=== PATIENT | male | born 1965 | race Caucasian/White ===

== ENCOUNTER → 2016-11-20 | Outpatient (CLI) | payer OTHER ==
[2016-11-20 20:34] LABS: Appearance,CSF Clear
[2016-11-24 02:56] LABS: Lyme Specimen Source Not Provided
== END | disposition home or self-care (01) ==
LOC: LABWHC1 11:37
PROVIDERS: ATTEND Psychiatry & Neurology Neurology
DX: G93.9 Disorder of brain, unspecified (principal); R42 Dizziness and giddiness; H53.9 Unspecified visual disturbance
CPT/HCPCS: 36415; 82040; 82042; 82784; 83873; 83916; 84157; 87476; 88108; 89050

== ENCOUNTER → 2017-03-01 | Outpatient (CLI) | payer OTHER ==
--- NOTE | 2017-03-01 08:59 | MR ---
MRI BRAIN WITH CONTRAST CLINICAL HISTORY: White matter disease TECHNIQUE: Multiplanar, multisequence imaging of the brain and brainstem is performed without and wit h IV contrast, 15 cc of Gadolinium is administered intravenously. Demyelinating disease protocol wit h additional Sagittal Flair sequence performed. Comparison: 10/11/2016 FINDINGS: T2 Lesions Present : Yes Approximate Number of Lesions: 60-80 lesions seen throughout both cerebral hemispheres with sparing o f the cerebellum Locations Identified : Juxtacortical and periventricular. No evidence for DOS and finger morphology. Size of Largest Lesion(s): Left temporal lobe 9 mm. Enhancing Lesion(s) Present: None Change from Prior: Stable Diffusion weighted images demonstrate no evidence of a recent infarct or other diffusion abnormality. There is no worrisome extra-axial fluid collection. The ventricular system and cisternal spaces ar e normal in size and appearance. The brain volume is age appropriate. Midline structures demonstrate normal morphology. The craniocervical junction appears within normal limits. Post contrast images demonstrate no abnormal enhancement. The dural venous sinuses appear pa tent. The visualized sinuses are clear and the globes are intact. IMPRESSION: 1. Nonspecific white matter changes could be on the basis of demyelinating disease. Additional differ ential diagnostic possibilities include chronic small vessel ischemic change, sequela of Lyme's disea se, vasculitis, chronic migraine headaches to name a few. Correlate clinically. EXAMINATION TYPE: MR brain wo/w chinmayine wo DATE OF EXAM: 03/01/2017 8:40 AM COMPARISON: NONE HISTORY: White matter disease, Compare to prior brain mri, Vertigo, Patient states no symptoms for ne ck Multiplanar MultiSpin echo imaging of the cervical spine was performed. Comparison: none C2-C3: No evidence for degenerative disc disease. No disc bulge/herniation or protrusion. No Canal stenosis. Foramina are patent bilaterally. C3-C4: No evidence for degenerative disc disease. No disc bulge/herniation or protrusion. No Canal stenosis. Foramina are patent bilaterally. C4-C5: No evidence for degenerative disc disease. No disc bulge/herniation or protrusion. No Canal stenosis. Foramina are patent bilaterally. C5-C6: Borderline disc desiccation. Mild posterior disc bulge. No herniation protrusion or central st enosis. Foramina are patent bilaterally. C6-C7: There is mild disc desiccation. Posterior central disc bulge without herniation. No evidence f or central stenosis. Degenerative change cervical apophyseal joints with mild bilateral foraminal enc roachment. C7-T1: There is mild disc desiccation. Posterior central disc bulge without herniation. No evidence f or central stenosis. Degenerative change cervical apophyseal joints with mild bilateral foraminal enc roachment. Cervical segments are intact. There is normal alignment. Cervical spinal cord is of normal signal. Craniovertebral junction relationships are within normal limits. IMPRESSION: 1. Generative disc disease and disc bulging as noted.
== END ==
LOC: RADMRIMAIN 07:21
PROVIDERS: ATTEND Nurse Practitioner Acute Care
DX: R90.89 Other abnormal findings on diagnostic imaging of central nervous system (principal); M50.30 Other cervical disc degeneration, unspecified cervical region
CPT/HCPCS: 70553; 72141; A9577